=== PATIENT | female | born 1945 | race Caucasian/White ===

== ENCOUNTER → 2016-05-12 | Outpatient (CLI) | payer MEDICARE, OTHER ==
[2015-08-31 16:06] VITALS: BP 115/59
[~2016-05-12] MED LIST: CALC600T4 PO; GLIM2TAB2 PO; LISI10TA2 PO; METF10002 PO; MULT-658 PO; NAPR220C4 PO; OMEG300C PO; TRAM50TA PO
--- NOTE | 2016-05-12 14:06 | KCIC ---
Bilateral digital screening mammograms with CAD: HISTORY COMPARISON Comparison is made to previous studies dated 01/22/2015 and 12/08/2010. FINDINGS Breast density category B. The skin and nipples show no abnormalities. No abnormal lymph nodes are seen in the axilla. The breast parenchyma shows scattered fibroglandular density. There are no dominant masses, suspicious calcifications or architectural distortions. Benign appearing calcifications are present IMPRESSION No evidence of malignancy. Recommend routine annual mammographic screening. This study was interpreted with the benefit of Computerized Aided Detection (CAD). Mammography is not 100% sensitive in detecting breast cancer. Therefore, a self breast exam and a clinical breast exam are very important. A negative mammogram does not negate a clinically suspicious finding and should not result in a delay in biopsying a clinically suspicious abnormality. BI-RADS category 2. Benign. This patient's information has been entered into a reminder system for the patient to be notified with the results of this examination and a target date for her next mammograms. Electronically signed by: Kenna Moreno MD (May 12, 2016 14:05:21)
== END | disposition home or self-care (01) ==
LOC: KCIC MAMMO 10:44
PROVIDERS: ATTEND Family Medicine
DX: Z12.31 Encounter for screening mammogram for malignant neoplasm of breast (principal)
CPT/HCPCS: 77052; G0202

== ENCOUNTER → 2017-07-23 | Outpatient (CLI) | payer MEDICARE, OTHER | END | disposition home or self-care (01) | LOC: US 15:22 | DX: I83.893 Varicose veins of bilateral lower extremities with other complications (principal); M79.89 Other specified soft tissue disorders; R60.0 Localized edema | CPT/HCPCS: 93971 ==

== ENCOUNTER → 2018-08-25 | Outpatient (CLI) | payer MEDICARE ==
[2015-08-31 16:06] VITALS: BP 115/59
[~2018-08-25] MED LIST changes: -METF10002 PO; +METF10007 PO
--- NOTE | 2018-08-25 12:46 | KCIC ---
BILATERAL SCREENING MAMMOGRAM, 3-D History: Routine screening. Comparison: Bilateral mammogram May 12, 2016. Technique: MLO and CC digital tomosynthesis (3D) images obtained. Radiologist reviewed these images on dedicated workstation. Findings: Breast Tissue Density A : The breasts are almost entirely fatty. There is a new 1.6 cm spiculated mass in the left breast at the 6:30 o'clock position 7.7 cm posterior to the nipple. There is a 6 mm nodular asymmetry in the outer left breast likely near the 3:00 position at mid depth, for example MLO slice 14, CC slice 20. There are multiple bilateral benign calcifications. Stable nodular asymmetry in the upper outer right breast at mid depth. There are no suspicious microcalcifications. IMPRESSION: 1. Spiculated mass in the lower inner left breast at mid depth. 2. 6 mm nodular asymmetry in the outer left breast at mid depth. 3. Recommend further evaluation with left breast ultrasound. BI-RADS Category 0: Incomplete: Need additional imaging evaluation. The images were reviewed with computer-aided detection. Patient information is entered into reminder system with a target due date for the next screening mammogram. Mammography is the most sensitive method for finding small breast cancers, but it does not detect them all and is not a substitute for careful clinical examination. A negative mammogram does not negate a clinically suspicious finding and should not result in delay in biopsying a clinically suspicious abnormality. "Our facility is accredited by the [employer] Mammography Program." Electronically signed by: Guillermo Beaver MD (08/25/2018 12:43 PM) [facility]
== END | disposition home or self-care (01) ==
LOC: KCIC MAMMO 10:12
PROVIDERS: ATTEND Family Medicine
DX: Z12.31 Encounter for screening mammogram for malignant neoplasm of breast (principal); N63.24 Unspecified lump in the left breast, lower inner quadrant; N64.89 Other specified disorders of breast
CPT/HCPCS: 77063; 77067

== ENCOUNTER → 2018-09-05 | Outpatient (CLI) | payer MEDICARE ==
[2015-08-31 16:06] VITALS: BP 115/59
--- NOTE | 2018-09-05 15:40 | KCIC ---
Left breast ultrasound: Reason for examination: Abnormal screening mammogram. Comparison is made to mammographic exam dated 08/25/2018. Ultrasound examination was performed in the area of mammographic concern at the 6:30 position of the left breast and at the left axilla. In the 3:00 position 7 cm from the nipple, there is a small 4.3 mm fibrocystic lesion. In the 2:30 position 7 cm from the nipple, there is a small 5.5 mm hypoechoic lesion with no vascular flow. This may be fibrocystic. In the 6:00 position 4 cm from the nipple and corresponding to the area of mammographic concern, there is a 2.1 x 1.8 x 1.3 cm nodule with irregular margination. Malignancy cannot be excluded. Further evaluation with ultrasound-guided biopsy is recommended. No abnormal appearing lymph nodes are seen in the axilla. IMPRESSION: 2.1 cm hypoechoic lesion at the 6:00 position corresponds to the area of mammographic concern and has a suspicious appearance. Further evaluation with ultrasound-guided biopsy is recommended. Additional small fibrocystic type lesions at the 2:30 and 3:00 positions which are subcentimeter in size. BI-RADS Category 5: Highly suggestive of malignancy. These findings have been discussed with the patient and Dr. Rubio's nurse, Tri, was notified about these findings at 1536 on 09/05/2018. "Our facility is accredited by the [employer] Mammography Program." This patient's information has been entered into a reminder system for the patient to be notified with the results of her examination and a target date for the next mammogram. Electronically signed by: Sofie Moreno MD (09/05/2018 3:37 PM) [facility]
== END | disposition home or self-care (01) ==
LOC: KCIC US 09:52
PROVIDERS: ATTEND Family Medicine
DX: N64.89 Other specified disorders of breast (principal)
CPT/HCPCS: 76641

== ENCOUNTER → 2018-09-22 | Outpatient (CLI) | payer MEDICARE ==
[2015-08-31 16:06] VITALS: BP 115/59
--- NOTE | 2018-09-23 17:07 | PATHOLOGY ---
[facility] Accession Number: [id number] . 01 Material submitted: . breast - LEFT BREAST, 6:00. Modifiers: left, 6:00 . 01 Clinical history: . Left breast mass . 02 Diagnosis: Breast tissue, left breast mass 6:00 needle biopsies: - INVASIVE DUCTAL CARCINOMA, HIGH GRADE. SEE COMMENT. (JPM:[facility] 09/23/2018) QTP/09/23/2018 . 02 Comment: Sections of the left breast mass at 6:00 needle biopsy reveal an invasive mammary carcinoma. The tumor shows little tubule formation and is associated with a reactive desmoplastic stroma. The tumor cells show marked nuclear pleomorphism with prominent nucleoli. The tumor shows focal moderate mitotic activity. The invasive carcinoma measures up to 1.5 cm in greatest dimension on the glass slide. There is no lymphovascular tumor invasion. The morphologic findings are supportive of the diagnosis of an invasive high-grade ductal carcinoma. Breast prognostic studies will be obtained on block A1, the results of which will be reported separately. The case is also examined by Dr. Kymberly Qureshi, who concurs with the diagnosis. (JPM:[facility] 09/23/2018) . 02 Electronically signed: . Elio Pratt MD, Pathologist NPI- [id number] . 01 Gross description: . Received in formalin labeled "Yovana Huerta, left breast," and additionally labeled on the requisition as "6:00," are multiple needle cores of yellow-rueda fibrofatty tissue measuring 2.1 x 0.6 x 0.2 cm in aggregate dimensions. The tissue is submitted in its entirety in cassette A1 through A3. The cold ischemic time is 5 minutes. The total formalin fixation time is 8 hours and 42 minutes. (TSD; 09/22/2018) TOB/TOB . 02 Pathologist provided ICD-10: C50.912 . 02 CPT . 877850 Specimen Comment: A courtesy copy of this report has been sent to Specimen Comment: [phone], , . Specimen Comment: Report sent to ,DR HELTON / DR HILL Performed at: 01 [facility] [address] [facility] [address], [place] [id number] MD Joshua Bland MD Phone: [phone] Performed at: 02 [facility] [address] [place], [place] [id number] MD Elio Pratt MD Phone: [phone]
--- NOTE | 2018-09-26 09:54 | RAD ---
Ultrasound-guided left breast biopsy, 09/22/2018: History: Suspicious breast mass Previous studies demonstrated a suspicious nodule at the 6:00 location. Under local anesthesia, aseptic conditions and sonographic guidance 4 separate 14-gauge core samples were obtained from this nodule via a lateral approach. The samples were sent to pathology for evaluation. A biopsy marker was deposited within the nodule. The biopsy instrument was then removed and hemostasis obtained. Two-view postprocedural digital mammograms were then obtained to document position of the biopsy marker which lies within the biopsied mass. The patient tolerated the procedure well and left the department in good condition. The subsequent pathology report indicated the presence of invasive ductal carcinoma. This is considered to be concordant finding. Note: The findings were called to personnel in Dr. Wolf's office at 9:49 AM on 09/26/2018.
== END | disposition home or self-care (01) ==
LOC: US 09:21
PROVIDERS: ATTEND Surgery
DX: C50.812 Malignant neoplasm of overlapping sites of left female breast (principal); E11.9 Type 2 diabetes mellitus without complications; Z79.84 Long term (current) use of oral hypoglycemic drugs
CPT/HCPCS: 19083; 77065; 88305; 88361; C1713; 19081; 76942

== ENCOUNTER 2018-10-31 07:01 | Observation (INO) | payer MEDICARE ==
[2018-10-31] VITALS (10 sets, daily range): BP systolic 100–120; BP diastolic 53–69
[~2018-10-31] VITALS: Ht 158.8 cm; Wt 64.8 kg
[~2018-10-31 07:01] MED LIST changes: +HYDROmorphone 2 MG/ML VIAL IV PRN; +IV RINGERS,LACTATED 1000ML 1,000 ML IV SCH; +LIDOCAINE 1% PF 2 ML VIAL. ID PRN; +METF500T16 PO; +MORPHINE SULFATE 2 MG/ML VIAL. IV PRN; +ONDANSETRON PF 4 MG/2 ML VIAL. IV PRN; +PROCHLORPERAZINE 10 MG/2 ML VIAL. IV PRN; +fentaNYL PF VIAL 100 MCG/2 ML VIAL IV PRN
[2018-10-31] MEDS ORDERED: ISOSULFAN BLUE 50 MG/5 ML VIAL. SQ ONE (07:40)
[2018-10-31] MEDS ORDERED: LIDOCAINE WITH 8.4% SOD BICARB 3 ML DISP.SYRIN. INJ ONE (08:00)
[2018-10-31] MEDS ORDERED: INSULIN LISPRO 100 UNIT/ML 3ML VIAL for OP,RR ONLY. SQ PRN ×2 (08:00→12:15)
[2018-10-31] MEDS ORDERED: LIDOCAINE 2% PF 5 ML VIAL. ONE (08:09)
[2018-10-31] MEDS ORDERED: PROPOFOL 20 ML IV ONE (08:09)
[2018-10-31] MEDS ORDERED: fentaNYL PF VIAL 100 MCG/2 ML VIAL ONE ×3 (08:10→12:28)
[2018-10-31] MEDS: INSULIN LISPRO 100 UNIT/ML 3ML VIAL for OP,RR ONLY. SQ PRN ×2 (08:10→12:28)
[2018-10-31] MEDS ORDERED: SEVOFLURANE 61 TO 120 MINUTES. IH ONE (09:32)
[2018-10-31] MEDS ORDERED: DEXAMETHASONE SOD PHOS 4 MG/ML VIAL ONE (09:32)
[2018-10-31] MEDS ORDERED: ePHEDrine PF IN SALINE 50 MG/10 ML SYRINGE. IV ONE (09:41)
[2018-10-31] MEDS ORDERED: FAMOTIDINE 20 MG/2 ML VIAL ONE (09:50)
[2018-10-31] MEDS ORDERED: ONDANSETRON PF 4 MG/2 ML VIAL. ONE (09:50)
[2018-10-31] MEDS ORDERED: 0.9 % SODIUM CHLORIDE 10 ML DISP.SYRIN. IV PRN (12:00)
[2018-10-31] MEDS ORDERED: ONDANSETRON PF 4 MG/2 ML VIAL. IV PRN (12:00)
[2018-10-31] MEDS ORDERED: HYDROmorphone 2 MG/ML VIAL IV PRN (12:00)
[2018-10-31] MEDS ORDERED: HYDROcodone/APAP 5/325MG 1 TAB TABLET PO PRN ×2 (12:00)
[2018-10-31] MEDS ORDERED: DEXTROSE 50% 25 GM / 50ML DISP.SYRIN. IV PRN (12:00)
--- NOTE | 2018-10-31 12:05 | PDOC4 ---
Operative Note Operative Note Operative note: Preoperative diagnosis: Left breast cancer Postoperative diagnosis: Same Procedure: Left simple mastectomy, left axillary sentinel lymph node biopsy Surgeon: Luciano Traffic Recorder: Halle TREJO Anesthesia: Gen. EBL: 100 mL Specimen: Left axillary sentinel lymph node #1, hot and blue to pathology; sentinel lymph nodes 2 through 4 hot to pathology, left breast stitch 12:00 to pathology Drains: 19 Arabic round Vladimir drain to left chest Complications: None Disposition: To recovery room in stable condition Indication: The patient is a 73-year-old female who was recently diagnosed with breast cancer. We plan for a left simple mastectomy with sentinel lymph node biopsy for surgical treatment. The details and risks of surgery were discussed with the patient. The risks include bleeding, infection, pain, scar tissue, lymphedema, paresthesias, anesthetic risk, wound healing problems, potential need for additional surgeries or procedures. She understands and would like to proceed. Description: The patient was placed supine on the operating table and general anesthesia was performed. With a marker an elliptical tracing was made around the nipple areolar complex of the left breast extending from the medial chest to the axilla. With a scapel an incision was made along the lateral portion of the superior tracing toward the axilla. Cautery dissection was then carried down into the axillary tissues. With the C-Trak probe were able to readily identify an area of marked increased nuclear uptake corresponding to a lymph node. This lymph node did stain blue and was harvested from the surrounding tissues. This was sent to pathology for frozen section. Following this there were three additional lymph nodes that showed nuclear uptake with no blue staining. These were sequentially harvested and sent to pathology labeled sentinel lymph nodes 2 through 4. Following this there was no other areas of marked uptake or blue staining, and there was no palpable adenopathy. Frozen section showed no evidence of metastatic involvement of lymph nodes. We therefore proceeded with the mastectomy. With a scalpel the incision was continued along the previous elliptical tracing on the skin.. Cautery dissection was used to develop the skin flaps. We began with the superior flap mobilizing the skin away from the deeper breast parenchyma. This dissection was carried superiorly to just below the level of the clavicle. The inferior flap was then developed as well using cautery. This dissection included the inframammary fold and was carried down to the upper torso. In a medial to lateral fashion the breast was then taken off the chest wall and care was taken to include the axillary tail of Dodd. A stitch was used to jayna the specimen at the 12 o'clock position and it was sent to pathology. Hemostasis was readily achieved with cautery and a couple of larger vessels were ligated with 2-0 Vicryl. A 19 Arabic round Vladimir drain was then left in the chest wall which exited inferiorly. This was secured to the skin with 2-0 silk. The subcutaneous tissue was approximated with interrupted 3-0 Vicryl. The skin was then closed with a running 4-0 Monocryl suture. A sterile OpSite dressing was then placed over the incision. The patient tolerated the procedure well and was sent to the recovery room in stable condition. AVE HELTON MD Oct 31, 2018 12:05
[2018-10-31] MEDS ORDERED: PROCHLORPERAZINE 10 MG/2 ML VIAL. ONE (12:29)
[2018-10-31] MEDS: fentaNYL PF VIAL 100 MCG/2 ML VIAL IV PRN ×2 (12:30→12:39)
--- NOTE | 2018-10-31 13:35 | NUR ---
Arrived to unit by bed from PACU. Awakens easily. No c/o at this time. Dressing on left chest is dry and intact with RAJIV drain. Pt moves all extremities easily. IVF's intact and infusing. DEBBIE's and SCD's on bilaterally. Oriented to room and controls. Side rails up x's 2 with call light in reach. Spouse and family at bedside. Cont. monitor.
--- NOTE | 2018-10-31 13:35 | RAD ---
CLINICAL HISTORY: Left breast cancer COMPARISON: None available. TECHNIQUE: Radiopharmaceutical Dose: 0.8 mCi Tc99m ultrafiltered sulfur colloid intradermal A series of 4 intradermal injections were performed surrounding the left nipple. IMPRESSION: Successful lymphoscintigraphy as above. Electronically signed by: Neri Rubi MD (10/31/2018 1:32 PM) [facility]
--- NOTE | 2018-10-31 16:20 | NUR ---
Ambulated to bathroom with steady gait. Voided without difficulty. Return back to bed. No c/o at this time.
[2018-10-31] MEDS ORDERED: INSULIN LISPRO 300 UNITS/3 ML INSULN.PEN. SQ SCH ×2 (17:00→23:00)
[2018-10-31] MEDS: metFORMIN 500 MG TABLET PO SCH (17:05)
[2018-10-31] MEDS: IV 1/2 NORMAL SALINE 1,000 ML IV SCH (19:22)
--- NOTE | 2018-10-31 21:32 | NUR ---
FSBS 308. No order for sliding scale at HS. Call to Dr. Wolf's service.
--- NOTE | 2018-10-31 21:34 | NUR ---
Call returned from Dr. Wolf, informed him of FSBS 308. Order to consult Hospitalist for Glucose monitoring.
--- NOTE | 2018-10-31 21:35 | NUR ---
Consult called to [phone]. Dr. Gant to return urgent consult regarding Glucose control.
--- NOTE | 2018-10-31 22:08 | NUR ---
Second page to Dr. Gant placed regarding consult/orders.
--- NOTE | 2018-10-31 22:13 | NUR ---
Call from Dr. Gant. Order received.
[2018-11-01] MEDS: IV 1/2 NORMAL SALINE 1,000 ML IV SCH (02:10)
[2018-11-01 02:58] VITALS: BP 117/54
[2018-11-01 06:40] VITALS: BP 108/59
[2018-11-01] MEDS: metFORMIN 500 MG TABLET PO SCH (07:55)
[2018-11-01] MEDS: INSULIN LISPRO 300 UNITS/3 ML INSULN.PEN. SQ SCH ×2 (07:58→11:31)
[2018-11-01] MEDS ORDERED: LISINOPRIL 10 MG TABLET PO SCH (09:00)
[2018-11-01] MEDS ORDERED: GLIMEPIRIDE 2 MG TABLET. PO SCH (09:00)
--- NOTE | 2018-11-01 09:11 | PDOC1 ---
History and Physical Date of Admission Date of Admission DATE: 11/01/18 TIME: 09:10 Identification/Chief Complaint Chief Complaint asked to see patient for hyperglycemia post-op History of Present Illness History of Present Illness Operative Note Operative Note Operative note: Preoperative diagnosis: Left breast cancer Postoperative diagnosis: Same Procedure: Left simple mastectomy, left axillary sentinel lymph node biopsy Surgeon: Luciano Pc Tech: Halle TREJO Anesthesia: Gen. EBL: 100 mL Specimen: Left axillary sentinel lymph node #1, hot and blue to pathology; sentinel lymph nodes 2 through 4 hot to pathology, left breast stitch 12:00 to pathology Drains: 19 Guamanian round Vladimir drain to left chest Complications: None Past Medical History Past Medical History Past Medical History Past Medical History: Diabetes-Type II Past Surgical History: Cholecystectomy, Other Additional Past Surgical Histo: BACK SURGERY, UTERINE CANCER Alcohol Use: None Drug Use: None PAST MEDICAL HISTORY: Cancer, diabetes, and head and neck injury. CURRENT MEDICATIONS: Glimepiride, metformin, lisinopril, tramadol, fish oil, Centrum Silver. ALLERGIES: No known drug allergies. SOCIAL HISTORY: . Retired. Nonsmoker. She reports she drinks alcohol one to two times a year. Hepatobiliary: No pertinent hx Psych: No pertinent hx Renal/: No pertinent hx Dermatology: No pertinent hx Family History Family History: High Cholestrol Family History: Parent Social History Smoke: No ALCOHOL: occassional Drugs: None Current Medications Current Medications Current Medications Ondansetron HCl (Zofran) 4 mg PRN Q6HRS PRN IV NAUSEA/VOMITING; Start 10/31/18 at 07:00; Stop 11/01/18 at 06:59; Status DC Fentanyl Citrate (Fentanyl 2ml Vial) 25 mcg PRN Q5MIN PRN IV MILD PAIN 1-3; Start 10/31/18 at 07:00; Stop 11/01/18 at 06:59; Status DC Fentanyl Citrate (Fentanyl 2ml Vial) 50 mcg PRN Q5MIN PRN IV MODERATE TO SEVERE PAIN Last administered on 10/31/18at 12:39; Start 10/31/18 at 07:00; Stop 11/01/18 at 06:59; Status DC Morphine Sulfate (Morphine Sulfate) 1 mg PRN Q10MIN PRN IV SEVERE PAIN 7-10; Start 10/31/18 at 07:00; Stop 11/01/18 at 06:59; Status DC Ringer's Solution 1,000 ml @ 30 mls/hr Q24H IV Last administered on 10/31/18at 07:54; Start 10/31/18 at 07:00; Stop 10/31/18 at 18:59; Status DC Lidocaine HCl (Xylocaine-Mpf 1% 2ml Vial) 2 ml PRN 1X PRN ID PRIOR TO IV START; Start 10/31/18 at 07:00; Stop 11/01/18 at 06:59; Status DC Hydromorphone HCl (Dilaudid) 0.5 mg PRN Q10MIN PRN IV SEV PAIN, Second choice; Start 10/31/18 at 07:00; Stop 11/01/18 at 06:59; Status DC Prochlorperazine Edisylate (Compazine) 5 mg PACU PRN PRN IV NAUSEA, MRX1 Last administered on 10/31/18at 12:31; Start 10/31/18 at 07:00; Stop 11/01/18 at 06:59; Status DC Cefazolin Sodium 50 ml @ 100 mls/hr 1X PREOP PRN IV PRIOR TO PROCEDURE Last administered on 10/31/18at 09:20; Start 10/31/18 at 06:00; Stop 10/31/18 at 18:00; Status DC Insulin Human Lispro (HumaLOG VIAL for OP,RR ONLY) 0-10 units PRN Q1HR PRN SQ PER PROTOCOL; Start 10/31/18 at 08:00; Stop 10/31/18 at 09:17; Status DC Lidocaine/Sodium Bicarbonate (Buffered Lidocaine 1%) 3 ml 1X ONCE INJ Last administered on 10/31/18at 08:47; Start 10/31/18 at 08:00; Stop 10/31/18 at 08:01; Status DC Propofol 20 ml @ As Directed STK-MED ONCE IV ; Start 10/31/18 at 08:09; Stop 10/31/18 at 08:10; Status DC Lidocaine HCl (Lidocaine Pf 2% Vial) 5 ml STK-MED ONCE .ROUTE ; Start 10/31/18 at 08:09; Stop 10/31/18 at 08:10; Status DC Fentanyl Citrate (Fentanyl 2ml Vial) 100 mcg STK-MED ONCE .ROUTE ; Start 10/31/18 at 08:10; Stop 10/31/18 at 08:11; Status DC Isosulfan Blue (Isosulfan Blue) 50 mg STK-MED ONCE SQ Last administered on 10/31/18at 10:31; Start 10/31/18 at 07:40; Stop 10/31/18 at 08:40; Status DC Insulin Human Lispro (HumaLOG VIAL for OP,RR ONLY) 0-10 units PRN Q1HR PRN SQ PER PROTOCOL Last administered on 10/31/18at 12:28; Start 10/31/18 at 09:15; Stop 11/01/18 at 04:38; Status DC Dexamethasone Sodium Phosphate (Decadron) 4 mg STK-MED ONCE .ROUTE ; Start 10/31/18 at 09:32; Stop 10/31/18 at 09:33; Status DC Sevoflurane (Ultane) 60 ml STK-MED ONCE IH ; Start 10/31/18 at 09:32; Stop 10/31/18 at 09:33; Status DC Ephedrine Sulfate (ePHEDrine PF IN SALINE SYRINGE) 50 mg STK-MED ONCE IV ; Start 10/31/18 at 09:41; Stop 10/31/18 at 09:42; Status DC Famotidine (Pepcid Vial) 20 mg STK-MED ONCE .ROUTE ; Start 10/31/18 at 09:50; Stop 10/31/18 at 09:51; Status DC Ondansetron HCl (Zofran) 4 mg STK-MED ONCE .ROUTE ; Start 10/31/18 at 09:50; Stop 10/31/18 at 09:51; Status DC Fentanyl Citrate (Fentanyl 2ml Vial) 100 mcg STK-MED ONCE .ROUTE ; Start 10/31/18 at 10:34; Stop 10/31/18 at 10:35; Status DC Sodium Chloride (Normal Saline Flush) 3 ml QSHIFT PRN IV AFTER MEDS AND BLOOD DRAWS; Start 10/31/18 at 12:00 Sodium Chloride 1,000 ml @ 70 mls/hr [id number] IV ; Start 10/31/18 at 11:52; Stop 11/01/18 at 02:21; Status DC Acetaminophen/ Hydrocodone Bitart (Lortab 5/325) 1 tab PRN Q4HRS PRN PO MILD PAIN 1-3; Start 10/31/18 at 12:00 Acetaminophen/ Hydrocodone Bitart (Lortab 5/325) 2 tab PRN Q4HRS PRN PO MODERATE PAIN, SEVERE PAIN; Start 10/31/18 at 12:00 Hydromorphone HCl (Dilaudid) 0.2 mg PRN Q1HR PRN IV PAIN; Start 10/31/18 at 12:00 Ondansetron HCl (Zofran) 4 mg PRN Q6HRS PRN IV NAUESA, 1ST CHOICE; Start 10/31/18 at 12:00 Glimepiride (Amaryl) 4 mg DAILY PO Last administered on 11/01/18at 07:55; Start 11/01/18 at 09:00 Lisinopril (Prinivil) 10 mg DAILY PO ; Start 11/01/18 at 09:00 Metformin HCl (Glucophage) 1,000 mg BIDWMEALS PO Last administered on 11/01/18at 07:55; Start 10/31/18 at 17:00 Insulin Human Lispro (HumaLOG) 0-7 UNITS TIDWMEALS SQ Last administered on 10/31at 17:09; Start 10/31/18 at 17:00; Stop 10/31/18 at 22:14; Status DC Dextrose (Dextrose 50%-Water Syringe) 12.5 gm PRN Q15MIN PRN IV SEE COMMENTS; Start 10/31/18 at 12:00 Insulin Human Lispro (HumaLOG VIAL for OP,RR ONLY) 0-10 units PRN Q1HR PRN SQ P ER PROTOCOL; Start 10/31/18 at 12:15; Stop 11/01/18 at 04:38; Status DC Fentanyl Citrate (Fentanyl 2ml Vial) 100 mcg STK-MED ONCE .ROUTE ; Start 10/31/18 at 12:28; Stop 10/31/18 at 12:29; Status DC Prochlorperazine Edisylate (Compazine) 10 mg STK-MED ONCE .ROUTE ; Start 10/31/18 at 12:29; Stop 10/31/18 at 12:30; Status DC Insulin Human Lispro (HumaLOG) 0-7 UNITS TIDPCHC SQ Last administered on 10/31/18at 22:29; Start 10/31/18 at 23:00; Stop 10/31/18 at 23:01; Status DC Insulin Human Lispro (HumaLOG) 0-7 UNITS TIDPCHC SQ Last administered on 11/01/18at 07:58; Start 11/01/18 at 09:00 Active Scripts Active Reported Metformin Hcl 500 Mg Tablet 1,000 Mg PO BIDWMEALS Centrum Silver Tablet (Multivits-Min/Fa/Lycopene/Lut) 1 Each Tablet 1 Each PO DAILY Glimepiride 2 Mg Tablet 2 Tab PO DAILY Lisinopril 10 Mg Tablet 10 Mg PO DAILY Allergies Allergies: Coded Allergies: No Known Drug Allergies (Unverified , 10/31/18) ROS General: No: Chills, Night Sweats, Fatigue, Malaise, Appetite, Other PSYCHOLOGICAL ROS: No: Anxiety, Behavioral Disorder, Concentration difficultie, Decreased libido, Depression, Disorientation, Hallucinations, Hostility, I rritablity, Memory difficulties, Mood Swings, Obsessive thoughts, Physical abuse, Sexual abuse, Sleep disturbances, Suicidal ideation, Other Eyes: No Blurry vision, No Decreased vision, No Double vision, No Dry eyes, No Excessive tearing, No Eye Pain, No Itchy Eyes, No Loss of vision, No Photophobia, No Scotomata, No Uses contacts, No Uses glasses, No Other HEENT: No: Heacaches, Visual Changes, Hearing change, Nasal congestion, Nasal discharge, Oral lesions, Sinus pain, Sore Throat, Epistaxis, Sneezing, Snoring, Tinnitus, Vertigo, Vocal changes, Other ALLERGY AND IMMUNOLOGY: No: Hives, Insect Bite Sensitivity, Itchy/Watery Eyes, Nasal Congestion, Post Nasal Drip, Seasonal Allergies, Other Hematological and Lymphatic: No: Bleeding Problems, Blood Clots, Blood Transfusions, Brusing, Night Sweats, Pallor, Swollen Lymph Nodes, Other Respiratory: No: Cough, Hemoptysis, Orthopnea, Pleuritic Pain, Shortness of breath, SOB with excertion, Sputum Changes, Stridor, Tachypnea, Wheezing, Other Cardiovascular: No Chest Pain, No Palpitations, No Orthopnea, No Paroxysmal Noc. Dyspnea, No Edema, No Lt Headedness, No Other Gastrointestinal: No Nausea, No Vomiting, No Abdominal Pain, No Diarrhea, No Constipation, No Melena, No Hematochezia, No Other Genitourinary: No Dysuria, No Frequency, No Incontinence, No Hematuria, No Retention, No Discharge, No Urgency, No Pain, No Flank Pain, No Other, No , No , No , No , No , No , No Musculoskeletal: No Gait Disturbance, No Joint Pain, No Joint Stiffness, No Joint Swelling, No Muscle Pain, No Muscular Weakness, No Pain In:, No Swelling In:, No Other Neurological: No Behavorial Changes, No Bowel/Bladder ControlChng, No Confusion, No Dizziness, No Gait Disturbance, No Headaches, No Impaired Coord/balance, No Memory Loss, No Numbness/Tingling, No Seizures, No Speech Problems, No Tremors, No Visual Changes, No Weakness, No Other Skin: No Dry Skin, No Eczema, No Hair Changes, No Lumps, No Mole Changes, No Mottling, No Nail Changes, No Pruritus, No Rash, No Skin Lesion Changes, No Other, No Acne Physical Exam General: Alert, Oriented X3, Cooperative, No acute distress HEENT: Atraumatic, PERRLA Lungs: Clear to auscultation, Normal air movement Heart: S1S2, RRR, no thrills, no rubs, no gallops, no murmurs Cardiovascular: S1, S2 Breasts: Not examined Abdomen: Soft Neuro: Normal speech, Strength at 5/5 X4 ext, Cranial nerves 3-12 NL Psych/Mental Status: Mental status NL, Mood NL Vitals Vitals Vital Signs Date Time Temp Pulse Resp B/P (MAP) Pulse Ox O2 Delivery O2 Flow Rate FiO2 11/01/18 08:02 71 99/58 11/01/18 08:00 Room Air 11/01/18 06:40 98.1 18 95 98.1 10/31/18 12:39 5.0 Labs Labs . 01 Material submitted: . breast - LEFT BREAST, 6:00. Modifiers: left, 6:00 . 01 Clinical history: . Left breast mass . 02 Diagnosis: Breast tissue, left breast mass 6:00 needle biopsies: - INVASIVE DUCTAL CARCINOMA, HIGH GRADE. SEE COMMENT. (JPM:vicki 09/23/2018) QTP/09/23/2018 Laboratory Tests Test 10/31/18 07:53 10/31/18 09:11 10/31/18 12:05 10/31/18 16:30 Glucose (Fingerstick) 246 mg/dL (70-99) 244 mg/dL (70-99) 304 mg/dL (70-99) 279 mg/dL (70-99) Test 10/31/18 21:14 10/31/18 22:23 11/01/18 06:30 Glucose (Fingerstick) 308 mg/dL (70-99) 263 mg/dL (70-99) 228 mg/dL (70-99) Laboratory Tests Test 10/31/18 09:11 10/31/18 12:05 10/31/18 16:30 10/31/18 21:14 Glucose (Fingerstick) 244 mg/dL (70-99) 304 mg/dL (70-99) 279 mg/dL (70-99) 308 mg/dL (70-99) Test 10/31/18 22:23 11/01/18 06:30 Glucose (Fingerstick) 263 mg/dL (70-99) 228 mg/dL (70-99) VTE Prophylaxis Ordered VTE Prophylaxis Devices: Yes VTE Pharmacological Prophylaxi: Yes Assessment/Plan Assessment/Plan impression 1 post op hyperglycemia, noncompliant with ADA DIET 2. hx diabetes plan REDUCE CARB INTAKE, PORTION SIZE OK TO D/C., SEE PCP SOON, keep accucheck records for pcp visit CONTINUE CURRENT MEDS CHRISTA HUERTA MD Nov 01, 2018 09:11
--- NOTE | 2018-11-01 09:14 | PDOC ---
MADDI WELSH MANAGER GARAGE 11/01/18 0914: SURGICAL PROGRESS NOTE Subjective no significant pain tolerating diet reports has been having issues with BS at home Vital Signs Vital Signs Date Time Temp Pulse Resp B/P (MAP) Pulse Ox O2 Delivery O2 Flow Rate FiO2 11/01/18 08:02 71 99/58 11/01/18 08:00 Room Air 11/01/18 06:40 98.1 18 95 98.1 10/31/18 12:39 5.0 I&O Intake and Output 11/01/18 06:59 Intake Total 1550 ml Output Total 1990 ml Balance -440 ml Intake Oral 400 ml IV Total 1150 ml Output Urine Total 1800 ml Drainage Total 90 ml Estimated Blood Loss 100 ml # Voids 2 General: Alert, Oriented X3, Cooperative, No acute distress Skin: Other (left breast incision dressing intact, no bleeding, no significant swelling, estrada serosang drainage) Labs Laboratory Tests Test 10/31/18 07:53 10/31/18 09:11 10/31/18 12:05 10/31/18 16:30 Glucose (Fingerstick) 246 mg/dL (70-99) 244 mg/dL (70-99) 304 mg/dL (70-99) 279 mg/dL (70-99) Test 10/31/18 21:14 10/31/18 22:23 11/01/18 06:30 Glucose (Fingerstick) 308 mg/dL (70-99) 263 mg/dL (70-99) 228 mg/dL (70-99) Laboratory Tests Test 10/31/18 12:05 10/31/18 16:30 10/31/18 21:14 10/31/18 22:23 Glucose (Fingerstick) 304 mg/dL (70-99) 279 mg/dL (70-99) 308 mg/dL (70-99) 263 mg/dL (70-99) Test 11/01/18 06:30 Glucose (Fingerstick) 228 mg/dL (70-99) Problem List s/p mastectomy home after IPC eval for any DM changes FU [address] HELTON MD 11/01/18 1205: SURGICAL PROGRESS NOTE Assessment/Plan Agree with above MADDI WELSH APRN Nov 01, 2018 09:[address] HELTON MD Nov 01, 2018 12:05
[2018-11-01] MEDS ORDERED: HYDR-2761 PO (09:15)
--- NOTE | 2018-11-01 09:16 | DISCH ---
DISCHARGE INSTRUCTIONS Condition on Discharge Condition on Discharge: Stable Activity After Discharge Activity Instructions for Disc: Activity as tolerated Bathing Instructions: Shower-keep dressing dry Lifting Instructions after Dis: No heavy lifting, No pulling or pushing Driving Instructions after Dis: Do not drive Diet after Discharge Diet after Discharge: Diabetic No Calorie Level Wound Incision Care Wound/Incision Care: Do not change dressing, Reinforce dressing PRN Other wound/incision instructi: drain care empty BID, record Contacting the DRFrancie after DC Call your doctor for: Concerns you may have Follow-Up Follow up with: Dr Wolf 1 week, call to schedule [phone] MADDI WELSH CIVIL ENGINEERING SPECIALIST Nov 01, 2018 09:16
--- NOTE | 2018-11-01 09:47 | NUR ---
Yovana is doing well this am. estrada drain to suction. is okay to go home if okay with hospitalist. awaiting hospitalist (blood sugar)
[2018-11-01 11:05] VITALS: BP 117/63
--- NOTE | 2018-11-01 12:18 | NUR ---
instructed and demonstrated drain care. was able to verbalize procedure. awaiting Dr. Garces
--- NOTE | 2018-11-01 13:42 | NUR ---
Dr. Garces here. okay to go home with no medication changes. Morgan Lemus paged.for discharge order.
--- NOTE | 2018-11-01 14:30 | NUR ---
reviewed written discharge with Yovana. reviewed restrictions to activities of daily care, drain care and follow up care. verbalized understanding. script given dismissed to home saline lock removed. dressing remains clean dry and intact.
--- NOTE | 2018-11-02 10:52 | PDOC3 ---
Discharge Summary Visit Information Date of Admission: Oct 31, 2018 Date of Discharge: Nov 01, 2018 Admitting Diagnosis: left breast cancer Final Diagnosis left breast cancer Brief Hospital Course Allergies Allergies Coded Allergies Type Severity Reaction Last Updated Verified No Known Drug Allergies 10/31/18 No Vital Signs Vital Signs Date Time Temp Pulse Resp B/P (MAP) Pulse Ox O2 Delivery O2 Flow Rate FiO2 11/01/18 11:05 98.5 73 20 117/63 (81) 97 Room Air 98.5 Lab Results Laboratory Tests Test 10/31/18 12:05 10/31/18 16:30 10/31/18 21:14 10/31/18 22:23 Glucose (Fingerstick) 304 mg/dL (70-99) 279 mg/dL (70-99) 308 mg/dL (70-99) 263 mg/dL (70-99) Test 11/01/18 06:30 11/01/18 10:47 Glucose (Fingerstick) 228 mg/dL (70-99) 243 mg/dL (70-99) Brief Hospital Course Ms. Huerta is a 73 old female who presented underwent Left simple mastectomy, left axillary sentinel lymph node biopsy. Postoperatively evaluated by hospitalist service for her hyperglycemia, recommended outpatient PCP follow up. At discharge tolerating diet, ambulating, and pain managed. Drain care and follow up next week Discharge Information Condition at Discharge: Stable Follow Up: Weeks (1) Disposition/Orders: D/C to Home Scheduled Glimepiride (Glimepiride) 2 Mg Tablet, 2 TAB PO DAILY for DIABETES, (Reported) Entered as Reported by: DIANA HUSSEIN on 04/27/13 0950 Last Taken: Unknown Dose on 10/30/18 Last Action: Continued on 10/31/[address] HELTON Lisinopril (Lisinopril) 10 Mg Tablet, 10 MG PO DAILY for blood pressure, (Reported) Entered as Reported by: DIANA HUSSEIN on 04/27/13 0949 Last Taken: Unknown Dose on 10/30/18 Last Action: Continued on 10/31/[address] HELTON Metformin Hcl (Metformin Hcl) 500 Mg Tablet, 1,000 MG PO BIDWMEALS for ANTI- DIABETIC, Ref 0 (Reported) Entered as Reported by: CAMRON HODGES on 10/27/18 1848 Last Taken: Unknown Dose on 10/30/18 Last Action: Converted on 10/31/[address] HELTON Multivits-Min/Fa/Lycopene/Lut (Centrum Silver Tablet) 1 Each Tablet, 1 EACH PO DAILY for supplement, (Reported) Entered as Reported by: DIANA HUSSEIN on 04/27/13 1003 Last Taken: Unknown Dose on 10/24/18 Last Action: HELD on 10/31/[address] HELTON Scheduled PRN Hydrocodone Bit/Acetaminophen (Hydrocodone-Apap 5-325 ) 1 Tab Tablet, 1 TAB PO PRN Q4HRS PRN for MILD PAIN 1-3, #30 Ref 0 Prescribed by: Maddi Lemus on 11/01/18 0915 MADDI LEMUS RESIDENCY COORDINATOR Nov 02, 2018 10:52
--- NOTE | 2018-11-04 09:11 | PATHOLOGY ---
[facility] Accession Number: [id number] . 01 Material submitted: . PART A: lymph node - LEFT BREAST, SENTINEL LYMPH NODE #1, HOT AND BLUE - FS. Modifiers: left PART B: lymph node - LEFT BREAST, SENTINEL LYMPH NODE #2, HOT - FS. Modifiers: left PART C: lymph node - LEFT AXILLA, SENTINEL NODE BIOPSY #3, HOT - FS. Modifiers: left, axilla PART D: lymph node - LEFT AXILLA, SENTINEL NODE BIOPSY #4, HOT - FS. Modifiers: left, axilla PART E: breast - LEFT BREAST, STITCH AT 12:00. Modifiers: left, 12:00 . 01 Clinical history: . Left breast tumor . 01 Frozen section diagnosis: . Intraoperative Consultation with Frozen Section Diagnosis: (Sharon Pratt M.D.) . FSA1. [place] lymph node #1 hot and blue: - Negative for tumor. . The results are reported to Dr. Wolf in the operating room. . FSB1. [place] lymph node #2 hot: - Negative for tumor. . The results are reported to Dr. Wolf in the operating room. . FSC1. [place] lymph node #3 hot: - Negative for tumor. . The results are reported to Dr. Wolf in the operating room. . FSD1. [place] lymph node #4 hot: - Negative for tumor. . The results are reported to Dr. Wolf in the operating room. . . FROZEN SECTION GROSS DESCRIPTION: A. The specimen is received fresh for intraoperative consultation and is designated "sentinel lymph node #1 hot and blue". This consists of a segment of yellow-red, fatty tissue measuring up to 2.7 x 1.5 x 1.0 cm. Sectioning reveals a pink-yellow lymph node measuring up to 1.4 cm which shows focal bluish discoloration. This is submitted for frozen section as FSA1. The tissue remaining from frozen section is submitted for permanent sections as A1. . B. The specimen is received fresh for intraoperative consultation and is designated "sentinel node #2 hot". This consists of a segment of yellow-red, fatty tissue measuring up to 1.9 x 1.3 x 0.4 cm. Sectioning reveals a small, pink-yellow, slightly firm lymph node measuring up to 0.7 cm in greatest dimension. This is submitted without sectioning for frozen section as FSB1. The tissue remaining from frozen section is submitted for permanent sections as B1. . C. The specimen is received fresh for intraoperative consultation is "sentinel lymph node #3 hot". This consists of a segment of yellow-red, fatty tissue measuring up to 1.6 cm in length and 1.2 cm in width. Sectioning reveals a yellow-giordano lymph node measuring up to approximately 1.0 cm in greatest dimension. This is submitted for frozen section as FSC1. The tissue remaining from frozen section is submitted for permanent sections as C1. . D. The specimen is received fresh for intraoperative consultation and is designated "sentinel lymph node #4 hot". This consists of an elongate segment of yellow-red fatty tissue measuring up to 3.8 cm in length and ranging from 0.3 cm up to 1.2 cm in width. Sectioning reveals a small, yellow-giordano lymph node measuring up to approximately 0.6 cm in greatest dimension. This is submitted without sectioning for frozen section as FSD1. The tissue remaining from frozen section is submitted for permanent sections as D1. (JPM/db/mml; 10/31/2018) . Frozen section performed at [facility], [address] [place] [address], [place] [address]. /LBQ . 02 Diagnosis: A. Lymph node, sentinel lymph node #1 hot and blue: - Negative for tumor. . B. Lymph node, sentinel lymph node #2 hot: - Negative for tumor. . C. Lymph node, sentinel lymph node #3 hot: - Negative for tumor. . D. Lymph node, sentinel lymph node #4 hot: - Negative for tumor. . E. Breast, left simple mastectomy: - INVASIVE DUCTAL CARCINOMA, HISTOLOGIC GRADE 3, FORMING A TUMOR MASS AT 6:00 HAVING IRREGULAR INFILTRATIVE MARGINS MEASURING UP TO APPROXIMATELY 2.3 CM IN GREATEST DIMENSION. - DUCTAL CARCINOMA IN SITU, HIGH GRADE, SOLID TYPE, FOCAL. - TUMOR IS APPROXIMATELY 1.1 CM FROM THE CLOSEST DEEP MARGIN OF RESECTION. - NO LYMPHOVASCULAR TUMOR INVASION IDENTIFIED. - NIPPLE NEGATIVE FOR TUMOR. - Previous biopsy site changes. - Fibrocystic changes with focal moderate/florid ductal epithelial hyperplasia. - Sclerosing adenosis, focal. - Seborrheic keratosis, skin of breast. (JPM:mml:db; 11/03/2018) [facility]/11/03/2018 . 02 Comment: The sentinel lymph nodes are examined at multiple levels. In addition, immunoperoxidase stains for AE1/AE3 are obtained on each of the sentinel lymph nodes and yield the following results: . AE1/AE3 (A1): Negative for tumor AE1/AE3 (B1): Negative for tumor AE1/AE3 (C1): Negative for tumor AE1/AE3 (D1): Negative for tumor . Thus there are a total of four sentinel lymph nodes, all of which are negative for tumor. (JPM:mml; 11/03/2018) . Special stains performed: AE1/AE3 on A1, B1, C1, and D1. . . Surgical Pathology Cancer Case Summary INVASIVE CARCINOMA OF THE BREAST: Resection . Procedure ___ Other: Simple mastectomy . Specimen Laterality ___ Left . + Tumor Site + ___ Clock position: 6 o'clock . Tumor Size ___ Greatest dimension of largest invasive focus >1 mm: 23 mm . Histologic Type ___ Invasive carcinoma of no special type (invasive ductal carcinoma, not otherwise specified) . Histologic Grade (Bidwell Histologic Score) Glandular (Acinar)/Tubular Differentiation ___ Score 3 (<10% of tumor area forming glandular/tubular structures) . Nuclear Pleomorphism ___ Score 3 (vesicular nuclei, often with prominent nucleoli, exhibiting marked variation in size and shape, occasionally with very large and bizarre forms) . Mitotic Rate ___ Score 3 . Overall Grade ___ Grade 3 (scores of 8 or 9) . + Tumor Focality + ___ Single focus of invasive carcinoma . Ductal Carcinoma In Situ ___ Present + ___ Negative for extensive intraductal component (EIC) . + Architectural Patterns + ___ Solid . + Nuclear Grade + ___ Grade III (high) . + Necrosis + ___ Not identified . + Lobular Carcinoma In Situ (LCIS) + ___ No LCIS in specimen . Margins Invasive Carcinoma Margins ___ Uninvolved by invasive carcinoma Distance from closest margin: 11 mm Specify closest margin: Deep margin . DCIS Margins ___ Uninvolved by DCIS . Regional Lymph Nodes ___ Uninvolved by tumor cells Number of Lymph Nodes Examined: 4 Number of [place] Nodes Examined: 4 . Treatment Effect + ___ No known presurgical therapy . + Lymphovascular Invasion + ___ Not identified . + Dermal Lymphovascular Invasion + ___ Not identified . Pathologic Stage Classification Primary Tumor (pT) ___ pT2:Tumor >20 mm but =50 mm in greatest dimension . Regional Lymph Nodes Category (pN) ___ pN0:No regional lymph node metastasis identified or ITCs only . + Microcalcifications + ___ Present in non-neoplastic tissue . + Clinical History + ___ Palpable mass . + Radiologic Finding + ___ Mass or architectural distortion . (JPM:electrical high tension tester; 11/03/2018) . 02 Electronically signed: . Elio Pratt MD, Pathologist NPI- [id number] . 01 Gross description: . SEE FROZEN SECTION GROSS DESCRIPTION FOR SPECIMENS A THROUGH D. . E. Received in formalin labeled" Yovana Huerta, left breast, stitch at 12:00 ", is an oriented. (Suture at 12:00) left simple mastectomy specimen weighing 1015 g and measuring 26.5 x 25 x 4.7 cm, with an overlying giordano-white ellipse of skin, 23.5 x 12.5 cm containing a 4.0 x 4.0 cm nipple-areola complex with a 1.0 cm in diameter, flattened nipple. The skin ellipse has several keratoses. The deep margin is covered by smooth fascia with no skeletal muscle present. The specimen is oriented with sutures: The specimen is inked as follows: anterior/superior = blue, anterior/inferior = green and deep black. Specimen is serial sectioned from medial to lateral to reveal a solid mass with an infiltrative and stellate border measuring 2.0 x 1.7 x 1.0 cm in lower inner quadrant approximately at 6:00 and 4 cm from the nipple. The mass is 1.3 cm to the closest deep and 1.5 cm to the closest anterior inferior margins and greater than 2.5 cm from the remaining margins. In addition, there is a rueda-white, firm nodule measuring 0.5 x 0.4 x 0.3 cm that is approximately 4.3 cm towards the lateral aspect from the mass approximately at the 3 o'clock position. This nodule is greater than 2.5 cm from all the margins. There is a probable blue dome cyst measuring 0.4 cm surrounded by rueda-white fibrous area that is 7.5 cm superior/lateral to the mass. The remaining parenchyma is predominantly yellow and lobulated with rueda-white fibrous strands interspersed, and the stroma-fat ratio is approximately 90:10. Polymer Chemist tissue is submitted as follows: E1. Nipple, perpendicular sectioned, and skin with keratoses. E2. Uninvolved parenchyma on the medial aspect. E3. Mass, Medial most aspect and closest deep margin. E4-E5. Mass and surrounding parenchyma, bisected. E6-E7. Mass and surrounding parenchyma, bisected. (E7= previous biopsy site) E8-E9. Mass and surrounding parenchyma, bisected. E10-E11. Lateral most aspect of mass and surrounding parenchyma, bisected. (E10 = mass to closest anterior inferior margin) E12-E13. Uninvolved parenchyma on the lateral aspect, bisected. E14-E15. Nodule at 3:00. E16-E17. Blue dome cyst and fibrous parenchyma. E18. Anterior superior margin closest to mass. E19. Medial margin closest to mass. E20. Anterior inferior margin closest to mass. E21. Lateral margin closest to mass. E22-E23. Upper outer quadrant. E24-E25. Lower outer quadrant. E26-E27. Lower inner quadrant. E28-E29. Upper inner quadrant. Specimen excised at: 1112 on 10/31/18, placed in formalin at: 1112 on 10/31/18, formalin exposure: Approximately: 36 hours and 18 minutes. ([facility]; 11/01/2018) SHS/LBQ . 02 Pathologist provided ICD-10: C50.912, D05.12, N60.12, N60.22, L82.1 . 02 CPT . 521975, 298578, 146540, 162015, 551101, 896414, 344964, 160110, 689884, P56856, H56007 Specimen Comment: A courtesy copy of this report has been sent to Specimen Comment: [phone], . Specimen Comment: Report sent to / DR HILL Performed at: 01 [facility] [address] [id number] MD Joshua Bland MD Phone: [phone] Performed at: 02 [facility] [address] [place], [place] [id number] MD Elio Pratt MD Phone: [phone]
== END 2018-11-01 15:00 | disposition home or self-care (01) ==
LOC: SURG 07:01 → 4 SOUTHEST 11:52
PROVIDERS: ADMIT Surgery; ATTEND Surgery
DX: C50.912 Malignant neoplasm of unspecified site of left female breast (principal); E11.65 Type 2 diabetes mellitus with hyperglycemia; Z98.890 Other specified postprocedural states; Z90.12 Acquired absence of left breast and nipple; Z91.19 Patient's noncompliance with other medical treatment and regimen; Z85.3 Personal history of malignant neoplasm of breast; Z85.42 Personal history of malignant neoplasm of other parts of uterus; Z86.73 Personal history of transient ischemic attack (TIA), and cerebral infarction without residual deficits; Z90.710 Acquired absence of both cervix and uterus; Z90.49 Acquired absence of other specified parts of digestive tract
CPT/HCPCS: 19303; 38525; 38792; 82962; 88307; 88331; 88342; 96372; A7015; A9541; G0378; G0379; J0171; J0690; J0780; J1100; J1815; J2001; J2405; J2704; J3010; J3490; J7120; Q9968; 96374

== ENCOUNTER 2018-12-21 08:29 | Day surgery (SDC) | payer MEDICARE ==
[~2018-12-21] VITALS: Ht 160 cm; Wt 63.0 kg
[~2018-12-21 08:29] MED LIST changes: +BUPIVACAINE-EPI 0.5%-1:200000 MPF 30 ML VIAL. INJ ONE; +HEPARIN SODIUM 5,000 UNIT in IV NORMAL SALINE 500ML BAG 500 ML IRR ONE; +HYDR-2761 PO
[2018-12-21] MEDS ORDERED: SEVOFLURANE 31 TO 60 MINUTES. IH ONE (08:43)
[2018-12-21] MEDS ORDERED: LIDOCAINE 2% PF 5 ML VIAL. ONE (08:44)
[2018-12-21] MEDS ORDERED: ONDANSETRON PF 4 MG/2 ML VIAL. ONE (08:44)
[2018-12-21] MEDS ORDERED: fentaNYL PF VIAL 100 MCG/2 ML VIAL ONE (08:44)
[2018-12-21] MEDS ORDERED: PROPOFOL 20 ML IV ONE (08:44)
[2018-12-21] MEDS ORDERED: DEXAMETHASONE SOD PHOS 4 MG/ML VIAL ONE (08:44)
[2018-12-21] MEDS ORDERED: INSULIN LISPRO 100 UNIT/ML 3ML VIAL for OP,RR ONLY. SQ PRN (09:00)
[2018-12-21] MEDS ORDERED: ePHEDrine PF IN SALINE 50 MG/10 ML SYRINGE. IV ONE (10:47)
[2018-12-21] MEDS ORDERED: PHENYLEPHRINE in 0.9% NACL PF 1 MG/10 ML SYRINGE. IV ONE (10:48)
--- NOTE | 2018-12-21 11:57 | PDOC4 ---
Operative Note Operative Note Operative Note: Preoperative Diagnosis: L breast cancer Postoperative Diagnosis: Same Procedure: Placement of Power Port-A-Cath using SonoSite guidance Surgeon: Luciano Anesthesia: Gen. EBL: 5 mL Specimen: None Drains: None Complications: None Indication: The patient is a 73 year old female who was recently diagnosed with breast cancer. A request was made for placement of a Port-A-Cath to allow for chemotherapy treatment. The details and risks of the procedure were discussed. The risks include bleeding, infection, vessel injury, pneumothorax, pain, a nesthetic risk, port, catheter or tubing malfunction or dysfunction, potential need for additional surgery or procedure. The patient understands and would like to proceed. Description: The patient was placed supine on the operating table and general anesthesia was performed. The bilateral neck and chest were prepped with ChloraPrep and draped in a standard surgical manner. With SonoSite ultrasound guidance the right internal jugular vein was readily identified and appeared patent. Entry was made into the vein with the skinny introducer needle under ultrasound guidance. The skinny guidewire passed readily into the central venous system. A small incision was made at the skin exit site. The skinny sheath was then placed over the guidewire. The larger guidewire was then placed within the sheath into the central venous system. Intraoperative fluoroscopy confirmed good position of the guidewire in the central venous system. The dilator and sheath were then placed over the guidewire. The catheter portion was then inserted into the central venous system and visualized using fluoroscopy. A separate right upper chest skin incision was made with a scalpel. A subcutaneous pocket was developed with cautery of sufficient size to accommodate the port. The catheter was then tunneled subcutaneously to the level of the newly formed pocket. Using fluoroscopy the catheter was positioned with the tip in the distal superior vena cava. The catheter was then cut and assembled to the port. The port was then secured to the chest wall with two 2-0 Prolene sutures. Using the Og needle the port readily aspirated and flushed without difficulty. Fluoroscopy confirmed good positioning of the catheter with no twists or kinks. The subcutaneous tissue was approximated with 3-0 Vicryl. The skin was then closed with 4-0 Monocryl. A sterile OpSite dressing was then applied. The patient tolerated the procedure well and was sent to the recovery room in stable condition. At the end of the case all counts were correct. AVE HELTON MD Dec 21, 2018 11:57
--- NOTE | 2018-12-21 11:59 | DISCH ---
DISCHARGE INSTRUCTIONS Condition on Discharge Condition on Discharge: Stable Activity After Discharge Activity Instructions for Disc: Activity as tolerated Diet after Discharge Diet after Discharge: Regular Wound Incision Care Wound/Incision Care: Other, see below (keep dressing clean and dry) Follow-Up Follow up with: Oncology, call for appt AVE HELTON MD Dec 21, 2018 11:59
[2018-12-21 12:35] VITALS: BP 134/80
--- NOTE | 2018-12-21 13:08 | RAD ---
Chest radiograph 12/21/2018 11:53 AM INDICATION: Port-A-Cath placement COMPARISON: None available TECHNIQUE: Portable upright frontal view of the chest is provided. FINDINGS: The cardiomediastinal silhouette is within normal limits. Right chest wall infusion port catheter is identified with the distal tip projecting over the cavoatrial junction. There are no pleural effusions. There is no pulmonary vascular congestion. There is no pneumothorax. Mild interstitial changes are noted at the lung bases. No focal airspace consolidation. No significant osseous abnormality is identified. IMPRESSION: Right chest wall infusion port catheter is identified with the distal tip projecting over the cavoatrial junction. No pneumothorax. Electronically signed by: Cherry Ruelas MD (12/21/2018 1:05 PM) [id number]
== END 2018-12-21 12:56 | disposition home or self-care (01) ==
LOC: SURG 08:29
PROVIDERS: ATTEND Surgery
DX: Z45.2 Encounter for adjustment and management of vascular access device (principal); C50.912 Malignant neoplasm of unspecified site of left female breast; E11.9 Type 2 diabetes mellitus without complications; Z86.73 Personal history of transient ischemic attack (TIA), and cerebral infarction without residual deficits; Z90.49 Acquired absence of other specified parts of digestive tract; Z90.710 Acquired absence of both cervix and uterus; Z98.890 Other specified postprocedural states; Z90.12 Acquired absence of left breast and nipple; Z79.84 Long term (current) use of oral hypoglycemic drugs
CPT/HCPCS: 36561; 71045; 77001; 82962; A7015; C1788; J0171; J0690; J1100; J1644; J2001; J2370; J2405; J2704; J3010; J7040; 36556; J3490

== ENCOUNTER → 2019-03-07 | Outpatient (CLI) | payer MEDICARE ==
[~2019-03-07] MED LIST changes: -BUPIVACAINE-EPI 0.5%-1:200000 MPF 30 ML VIAL. INJ ONE; -GLIM2TAB2 PO; +GLIM2TAB3 PO; -HEPARIN SODIUM 5,000 UNIT in IV NORMAL SALINE 500ML BAG 500 ML IRR ONE; -HYDROmorphone 2 MG/ML VIAL IV PRN; -IV RINGERS,LACTATED 1000ML 1,000 ML IV SCH; -LIDOCAINE 1% PF 2 ML VIAL. ID PRN; -MORPHINE SULFATE 2 MG/ML VIAL. IV PRN; -ONDANSETRON PF 4 MG/2 ML VIAL. IV PRN; -PROCHLORPERAZINE 10 MG/2 ML VIAL. IV PRN; -fentaNYL PF VIAL 100 MCG/2 ML VIAL IV PRN
--- NOTE | 2019-03-07 16:30 | KCIC ---
EXAM: Dual energy x-ray absorptiometry (DEXA). HISTORY: Post menopausal screening. TECHNIQUE: Dual energy x-ray absorptiometry of the lumbar spine and the left hip was performed. T-score of average bone mineral density based was calculated based on standard deviations above or below the expected young adult normal value. Diagnostic definitions were established by the World Health Organization. FINDINGS: The average bone mineral density associated with L1-L4 is 1.050 g/cm^2, corresponding with a T-score of 0.0. The average total bone mineral density associated with the left hip is 0.946 g/cm^2, corresponding with a T-score of 0.0. No comparison examinations are available. Refer to the worksheets for full detail. IMPRESSION: 1. Normal. Average bone mineral density yields a T-score of -1.0 or greater. Fracture risk is low. Electronically signed by: Alina Paul MD (03/07/2019 4:26 PM) [facility]
== END | disposition home or self-care (01) ==
LOC: KCIC DEXA 11:15
PROVIDERS: ATTEND Internal Medicine Hematology & Oncology
DX: C50.312 Malignant neoplasm of lower-inner quadrant of left female breast (principal); Z17.0 Estrogen receptor positive status [ER+]; Z78.0 Asymptomatic menopausal state
CPT/HCPCS: 77080

== ENCOUNTER → 2019-11-02 | Outpatient (CLI) | payer MEDICARE ==
[~2019-11-02] MED LIST changes: -GLIM2TAB3 PO; +GLIM2TAB7 PO
--- NOTE | 2019-11-02 12:58 | RAD ---
DATE: 11/02/2019 12:26 PM EXAM: MAMMO GERALDO DIAG RT HISTORY: Patient is due for screening. She is status post left mastectomy for breast cancer in October 2018. COMPARISON: Bilateral mammogram of 08/25/2018 CC and MLO views of the right breast were performed. In addition, breast tomosynthesis was performed in CC and MLO projections. This study was interpreted with the benefit of Computerized Aided Detection (CAD). FINDINGS: Breast Density: FATTY The Breast Parenchyma is primarily fatty replaced. Breast parenchyma level density A. Stable scattered benign calcifications. No suspicious masses, microcalcifications or architectural distortion is present to suggest malignancy. The visualized axillae are unremarkable. IMPRESSION: No mammographic evidence of malignancy. BI-RADS CATEGORY: 2 BENIGN FINDING(S) RECOMMENDED FOLLOW-UP: 12M 12 MONTH FOLLOW-UP Annual screening mammography is recommended, unless clinically indicated sooner based on symptoms or change in physical exam. PQRS compliance statement: Patient information was entered into a reminder system with a target due date 11/02/2020 for the next mammogram. Mammography is a sensitive method for finding small breast cancers, but it does not detect them all and is not a substitute for careful clinical examination. A negative mammogram does not negate a clinically suspicious finding and should not result in delay in biopsying a clinically suspicious abnormality. "Our facility is accredited by the [employer] Mammography Program."
== END | disposition home or self-care (01) ==
LOC: MAMMO 12:03
PROVIDERS: ATTEND Surgery
DX: R92.2 Inconclusive mammogram (principal); R92.1 Mammographic calcification found on diagnostic imaging of breast
CPT/HCPCS: 77065; G0279; 77061

== ENCOUNTER → 2019-11-29 | Outpatient (CLI) | payer MEDICARE ==
[~2019-11-29] MED LIST changes: -CALC600T4 PO; +CALC600T5 PO
--- NOTE | 2019-11-29 16:12 | KCIC ---
EXAM: Chest and right ribs, 4 views. HISTORY: Pain. COMPARISON: 12/21/2018 FINDINGS: A frontal view of the chest and 3 views of the right ribs are obtained. There is no infiltrate, pleural effusion or pneumothorax. There are coarse likely chronic interstitial changes. There is a small nodular opacity overlying the left lower lobe which is new compared to the prior exam. This may be artifactual. No displaced fracture is seen. IMPRESSION: 1. No acute pulmonary or osseous finding. 2. Small nodular opacity overlying the left lower lobe, possibly artifactual. Short-term radiographic follow-up is recommended to exclude a noncalcified nodule in this location. Electronically signed by: Vicky Diaz MD (11/29/2019 4:09 PM) [id number]
== END | disposition home or self-care (01) ==
LOC: KCIC 13:22
PROVIDERS: ATTEND Family Medicine
DX: R91.1 Solitary pulmonary nodule (principal); R07.81 Pleurodynia
CPT/HCPCS: 71101

== ENCOUNTER → 2019-12-18 | Outpatient (CLI) | payer MEDICARE ==
[~2019-12-18] MED LIST changes: -CALC600T5 PO; +CALC600T6 PO
[2019-12-18 09:27] LABS: BASO # 0.1 x10^3/uL (0.0-0.2); BASO % 1 % (0-3); EOS # 0.2 x10^3/uL (0.0-0.7); EOS % 4 % (0-3); HEMATOCRIT 40.6 % (36.0-47.0); HEMOGLOBIN 13.7 g/dL (12.0-15.5); LYMPH # 1.2 x10^3/uL (1.0-4.8); LYMPH % 20 % (24-48); MEAN CORPUSCULAR HEMOGLOBIN 33 pg (25-35); MEAN CORPUSCULAR HGB CONC 34 g/dL (31-37); MEAN CORPUSCULAR VOLUME 99 fL (79-100); MONO # 0.7 x10^3/uL (0.0-1.1); MONO % 11 % (0-9); NEUT # 3.9 x10^3/uL (1.8-7.7); NEUT % 64 % (31-73); PLATELET COUNT 230 x10^3/uL (140-400); RED BLOOD COUNT 4.11 x10^6/uL (3.50-5.40); RED CELL DISTRIBUTION WIDTH 13.1 % (11.5-14.5); WHITE BLOOD COUNT 6.1 x10^3/uL (4.0-11.0)
[2019-12-18 09:35] LABS: CALCIUM 9.4 mg/dL (8.5-10.1); CREATININE 1.2 mg/dL (0.6-1.0); GFR 43.8; POTASSIUM 4.8 mmol/L (3.5-5.1)
== END | disposition home or self-care (01) ==
LOC: ONCLAB 08:55
PROVIDERS: ATTEND Internal Medicine Hematology & Oncology
DX: C50.912 Malignant neoplasm of unspecified site of left female breast (principal)
CPT/HCPCS: 36415; 80048; 85025

== ENCOUNTER → 2019-12-19 | Outpatient (CLI) | payer MEDICARE ==
--- NOTE | 2019-12-19 11:06 | RAD ---
EXAM: CT Chest without IV contrast INDICATION: Reason: BREAST CA / Spl. Instructions: / History: TECHNIQUE: Multi-detector row CT images were acquired from the thoracic inlet through the upper abdomen without the use of IV contrast. Sagittal and coronal images were acquired from the transaxial data. All CT scans performed at this facility utilize dose optimization techniques as appropriate to the exam, including the following: Automated exposure control and adjustment of the mA and/or KV according to patient size (this includes techniques or standardized protocols for targeted exams where dose is indication/reason for exam). COMPARISON: None FINDINGS: The absence of IV contrast limits evaluation of soft tissue pathology. CARDIOVASCULAR: Normal caliber thoracic aorta. Dense calcifications along the left main and LAD coronary arteries. Normal heart size. No pericardial effusion. MEDIASTINUM & TYLER: There are a few calcified and noncalcified mediastinal lymph nodes. LUNGS: Subpleural reticular opacities are present diffusely. A 3 mm peripheral right upper lobe nodule (image 23 of axial series 2) is present. PLEURAL SPACE: No pleural effusions or pneumothorax. OSSEOUS & SOFT TISSUE: Left mastectomy. No osteolytic or osteoblastic lesions suspicious for osseous metastatic disease identified in the included field of view. ABDOMEN: Cholecystectomy clips. Otherwise unremarkable. IMPRESSION: Left mastectomy with no findings suspicious for thoracic metastatic disease or local recurrence. A 3 mm peripheral right upper lobe lung nodule is noted. Recommend follow-up CT in 12 months. Electronically signed by: Laurel Johnson MD (12/19/2019 11:03 AM) [id number]
== END | disposition home or self-care (01) ==
LOC: CT 09:21
PROVIDERS: ATTEND Internal Medicine Hematology & Oncology
DX: C50.312 Malignant neoplasm of lower-inner quadrant of left female breast (principal); R91.1 Solitary pulmonary nodule; I25.10 Atherosclerotic heart disease of native coronary artery without angina pectoris; Z90.49 Acquired absence of other specified parts of digestive tract; Z90.12 Acquired absence of left breast and nipple
CPT/HCPCS: 71250

== ENCOUNTER → 2020-10-28 | Outpatient (CLI) | payer MEDICARE ==
[~2020-10-28] MED LIST changes: -CALC600T6 PO; +CALC600T60 PO; +LISI10TA16 PO; -LISI10TA2 PO
[2020-10-28 10:46] LABS: BASO # 0.1 x10^3/uL (0.0-0.2); BASO % 1 % (0-3); EOS # 0.2 x10^3/uL (0.0-0.7); EOS % 5 % (0-3); HEMATOCRIT 36.9 % (36.0-47.0); HEMOGLOBIN 12.5 g/dL (12.0-15.5); LYMPH # 1.3 x10^3/uL (1.0-4.8); LYMPH % 29 % (24-48); MEAN CORPUSCULAR HEMOGLOBIN 34 pg (25-35); MEAN CORPUSCULAR HGB CONC 34 g/dL (31-37); MEAN CORPUSCULAR VOLUME 101 fL (79-100); MONO # 0.5 x10^3/uL (0.0-1.1); MONO % 11 % (0-9); NEUT # 2.5 x10^3/uL (1.8-7.7); NEUT % 55 % (31-73); PLATELET COUNT 194 x10^3/uL (140-400); RED BLOOD COUNT 3.67 x10^6/uL (3.50-5.40); RED CELL DISTRIBUTION WIDTH 14.2 % (11.5-14.5); WHITE BLOOD COUNT 4.5 x10^3/uL (4.0-11.0)
[2020-10-28 10:49] LABS: CALCIUM 9.2 mg/dL (8.5-10.1); CREATININE 1.1 mg/dL (0.6-1.0); GFR 48.3; POTASSIUM 4.3 mmol/L (3.5-5.1)
[2020-10-28 10:55] LABS: ALBUMIN 3.6 g/dL (3.4-5.0); ALBUMIN/GLOBULIN RATIO 1.1 (1.0-1.7); TOTAL BILIRUBIN 0.3 mg/dL (0.2-1.0); TOTAL PROTEIN 6.9 g/dL (6.4-8.2)
== END ==
LOC: ONCLAB 10:09
PROVIDERS: ATTEND Internal Medicine Hematology & Oncology
DX: C50.312 Malignant neoplasm of lower-inner quadrant of left female breast (principal)
CPT/HCPCS: 36415; 80053; 85025

== ENCOUNTER → 2020-11-08 | Outpatient (CLI) | payer MEDICARE ==
--- NOTE | 2020-11-08 13:09 | KCIC ---
Right breast digital screening mammograms with 3-D tomosynthesis: Reason for examination: Routine screening. History of left breast cancer with mastectomy. Comparison is made to previous studies dated back to 01/22/2015. Right breast mammograms in CC and oblique projections were obtained with 2-D imaging and 3-D tomosynt hesis imaging on a Siemens Inspiration unit and reviewed on the workstation. Interpretation was made with the benefit of CAD. The skin and nipple show no abnormalities. No abnormal axillary lymph nodes are seen. The breast pare nchyma shows scattered fatty and fibroglandular density. (Breast density: Category B.) There continue s to be small nodular parenchymal density at the 10:00 position posteriorly in the right breast which is stable and likely represents a small intramammary lymph node. There are no new dominant masses, s uspicious calcifications or architectural distortion. Benign calcifications are present. Impression: No evidence of malignancy. Recommend routine screening. BI-RAD Category 2: Benign. "Our facility is accredited by the [employer] Mammography Program." This patient's information has been entered into a reminder system for the patient to be notified wit h the results of her examination and a target date for the next mammogram. Electronically signed by: Sofie Moreno MD (11/08/2020 1:07 PM) [id number]
== END ==
LOC: KCIC MAMMO 10:34
PROVIDERS: ATTEND Surgery
DX: N63.11 Unspecified lump in the right breast, upper outer quadrant (principal); R92.1 Mammographic calcification found on diagnostic imaging of breast; Z85.3 Personal history of malignant neoplasm of breast
CPT/HCPCS: 77065; G0279; 77061

== ENCOUNTER → 2021-04-22 | Outpatient (CLI) | payer MEDICARE ==
--- NOTE | 2021-04-22 11:44 | RAD ---
EXAMINATION: CT Chest Without IV contrast. INDICATION:76 years, Female, lung nodule. Follow-up exam. COMPARISON: 12/19/2019. TECHNIQUE: Spiral CT was obtained from the jugular notch through the posterior costophrenic recess. S agittal and coronal reformats were obtained. Exposure: One or more of the following individualized dose reduction techniques were utilized for thi s examination: 1. Automated exposure control 2. Adjustment of the mA and/or kV according to patient size 3. Use of iterative reconstruction technique. FINDINGS: LUNGS/PLEURA: Central airways are patent. Similar diffuse subpleural reticulations bilaterally, parti cularly in the lower lobes. Mild centrilobular emphysema. No focal consolidation, pleural effusion or pneumothorax. . A 3 mm pulmonary nodule in the upper lobe. (series 8 image 51). Calcified granuloma in the left lower lobe. MEDIASTINUM: No pathologic mediastinal or hilar adenopathy. The thoracic aorta and pulmonary arteries are normal in caliber. The heart is normal in size. No pericardial effusion. Moderate calcified chele nary atherosclerosis. The visualized thyroid and the esophagus are unremarkable. AXILLA/SOFT TISSUE: No supraclavicular or axillary adenopathy. Left mastectomy changes. UPPER ABDOMEN: Small hiatal hernia. Cholecystectomy. BONES: No evidence of acute fractures or aggressive osseous lesions. Multilevel degenerative changes in the thoracic spine. IMPRESSION: 1. Stable 3 mm pulmonary nodule in the right upper lobe. Recommend 1 year follow-up with CT chest. 2. No new or enlarging pulmonary nodule or lymph node. Electronically signed by: Gissel Valencia MD (04/22/2021 11:41 AM) [facility]
== END ==
LOC: CT 09:36
PROVIDERS: ATTEND Internal Medicine Hematology & Oncology
DX: R91.1 Solitary pulmonary nodule (principal); J43.2 Centrilobular emphysema; I25.10 Atherosclerotic heart disease of native coronary artery without angina pectoris; J84.10 Pulmonary fibrosis, unspecified; K44.9 Diaphragmatic hernia without obstruction or gangrene; M47.814 Spondylosis without myelopathy or radiculopathy, thoracic region; Z90.49 Acquired absence of other specified parts of digestive tract
CPT/HCPCS: 71250